=== PATIENT | female | born 1985 | race Hispanic/Latino ===

== ENCOUNTER 2017-09-21 17:52 | Emergency (ER) | payer OTHER ==
[2017-09-21 18:22] VITALS: BMI 25.2
[2017-09-21] MEDS ORDERED: Sodium Chloride 0.9% 1,000 ML IV ONE (19:33)
[2017-09-21 20:14] LABS: BASO # 0.1 K/uL (0.0-0.2); EOS # 0.3 K/uL (0.0-0.7); EOS % 2.6 % (0.0-4.0); HEMOGLOBIN 13.1 g/dL (11.0-16.0); LYMPH # 3.1 K/uL (1.0-4.3); LYMPH % 27.2 % (20.0-40.0); MEAN CELL VOLUME 90.3 fL (81.0-99.0); MEAN CORPUSCULAR HEMOGLOBIN 31.4 pg (27.0-31.0); MEAN CORPUSCULAR HGB CONC 34.8 g/dL (33.0-37.0); MEAN PLATELET VOLUME 8.8 fL (7.2-11.7); MONO # 0.6 K/uL (0.0-0.8); MONO % 5.2 % (0.0-10.0); NEUT # 7.3 K/uL (1.8-7.0); NRBC % 0.1 % (0.0-2.0); RBC 4.17 Mil/uL (3.80-5.20); RED CELL DISTRIBUTION WIDTH 13.3 % (11.5-14.5); WHITE BLOOD COUNT 11.4 K/uL (4.8-10.8)
[2017-09-21 20:17] LABS: HCG,QUALITATIVE URINE NEGATIVE (NEGATIVE)
[2017-09-21 20:20] LABS: SQUAMOUS EPITHIAL 9 /hpf (0-5); URINE BACTERIA FEW (<OCC); URINE BILIRUBIN NEGATIVE (NEGATIVE); URINE BLOOD 1+ (NEGATIVE); URINE CLARITY Hazy (Clear); URINE COLOR Yellow (YELLOW); URINE GLUCOSE (UA) NORMAL (Normal); URINE LEUKOCYTE ESTERASE 3+ Leu/uL (Negative); URINE PROTEIN NEGATIVE (NEGATIVE); URINE UROBILINOGEN NORMAL mg/dL (0.2-1.0)
[2017-09-21 20:27] LABS: ALB/GLOB RATIO 1.2 (1.0-2.1); ALBUMIN 4.4 g/dL (3.5-5.0); ALT/SGPT 10 U/L (9-52); AST/SGOT 18 U/L (14-36); BLOOD UREA NITROGEN 6 mg/dL (7-17); CALCIUM 9.3 mg/dl (8.6-10.4); GFR AFRICAN-AMERICAN > 60; GFR NON-AFRICAN AMERICAN > 60; LIPASE 262 U/L (23-300)
--- NOTE | 2017-09-21 21:02 | C.PDOC ---
Time Seen by Provider: 09/21/17 19:14 Chief Complaint (Nursing): Chest Pain Past Medical History Vital Signs: Last Vital Signs Temp 98.7 F 09/21/17 18:22 Pulse 90 09/21/17 18:22 Resp 18 09/21/17 18:22 BP 141/95 H 09/21/17 18:22 Pulse Ox 99 09/21/17 18:22 - Medical History PMH: Asthma - [facility] Procedures EPISIOTOMY (09/10/13) - Social History Hx Alcohol Use: No Hx Substance Use: No ED Course And Treatment - Laboratory Results Result Diagrams: 09/21/17 20:08 09/21/17 20:08 O2 Sat by Pulse Oximetry: 99 Disposition - Disposition Disposition: HOME/ ROUTINE Disposition Time: 21:01 Condition: STABLE Additional Instructions: FOllow up with your doctor in 1-2 days. Return to ER if symptoms persist or worsen. Prescriptions: Naproxen [Naprosyn] 1 tab PO BID PRN #20 tab PRN Reason: Pain Nitrofurantoin Macrocrystals [Macrobid] 1 cap PO BID #14 cap Instructions: Urinary Tract Infection, Adult (DC) Forms: [employer] (Jordanian)
--- NOTE | 2017-09-21 21:15 | C.PDOC ---
History Of Present Illness 31 y/o female presents to the ED complaining of dizziness, described as lightheadedness, that began earlier today. Additionally, patient complains of bilateral rib pain that has been ongoing for 3 weeks. She notes the rib pain worsens with movement. Denies cough, blunt trauma or fall. Seen by PMD and had x -rays taken yesterday, but patient has not been informed of results yet. Otherwise denies any chest pain, SOB, syncope, nausea, vomiting, or fevers. Patient does report some urinary frequency, but no dysuria or hematuria. Time Seen by Provider: 09/21/17 19:14 Chief Complaint (Nursing): Chest Pain History Per: Patient History/Exam Limitations: no limitations Onset/Duration Of Symptoms: Days Current Symptoms Are (Timing): Still Present Past Medical History Reviewed: Historical Data, Nursing Documentation, Vital Signs Vital Signs: Last Vital Signs Temp 98.4 F 09/21/17 22:21 Pulse 70 09/21/17 22:21 Resp 16 09/21/17 22:21 BP 128/80 09/21/17 22:21 Pulse Ox 99 09/24/17 10:17 - Medical History PMH: Asthma Surgical History: No Surg Hx - [facility] Procedures EPISIOTOMY (09/10/13) Family History: States: No Known Family Hx - Social History Hx Alcohol Use: No Hx Substance Use: No Review Of Systems Except As Marked, All Systems Reviewed And Found Negative. Constitutional: Negative for: Fever, Chills Cardiovascular: Negative for: Chest Pain Respiratory: Negative for: Shortness of Breath Gastrointestinal: Negative for: Nausea, Vomiting Genitourinary: Positive for: Frequency. Negative for: Dysuria Musculoskeletal: Positive for: Other (Bilateral rib pain) Neurological: Positive for: Dizziness (lightheadedness) Physical Exam - Physical Exam Appears: Well, Non-toxic, No Acute Distress Skin: Normal Color, Warm, Dry Head: Atraumatic, Normacephalic Eye(s): bilateral: Normal Inspection, PERRL, EOMI Ear(s): Bilateral: Normal Nose: Normal Oral Mucosa: Moist Neck: Normal ROM, Supple Chest: Symmetrical, Tenderness (reproducible bilateral lateral chest wall tenderness) Cardiovascular: Rhythm Regular Respiratory: Normal Breath Sounds, No Accessory Muscle Use, No Rales, No Rhonchi , No Wheezing Gastrointestinal/Abdominal: Normal Exam, Soft, No Tenderness Back: No CVA Tenderness, No Vertebral Tenderness Extremity: Normal ROM Extremity: Bilateral: Atraumatic, Normal Color And Temperature, Normal ROM Neurological/Psych: Oriented x3, Normal Speech, Normal Cognition, Normal Cranial Nerves (2-12 grossly intact, no focal deficits), Normal Sensation Gait: Steady ED Course And Treatment - Laboratory Results Result Diagrams: 09/21/17 20:08 09/21/17 20:08 ECG: Interpreted By Me, Viewed By Me ECG Rhythm: Sinus Rhythm O2 Sat by Pulse Oximetry: 99 (RA) Pulse Ox Interpretation: Normal - Radiology CXR: Interpreted by Me, Viewed By Me CXR Interpretation: Yes: No Acute Disease Progress Note: Blood work, urine, and chest x-ray ordered. Patient started on IV fluids with Meclizine PO. Labs reviewed, urine is indicative for UTI. Patient treated with Macrobid in the ED. On reevaluation, patient is AAOx3, no focal deficits and reports improvement in symptoms. DEnies dizziness or lightheadedness. Steady gait. No sob or chest pain. Lungs CTA. Patient will be discharged home with prescriptions for Macrobid and Naprosyn. Advised to follow up with PMD in 1-2 days. CAse discussed with Dr Scales, fidel wilson plan and discharge. Reevaluation Time: 21:00 Reassessment Condition: Improved Disposition Counseled Patient/Family Regarding: Studies Performed, Diagnosis, Need For Followup, Rx Given - Disposition Disposition: HOME/ ROUTINE Disposition Time: 21:01 Condition: STABLE Additional Instructions: FOllow up with your doctor in 1-2 days. Return to ER if symptoms persist or worsen. Prescriptions: Naproxen [Naprosyn] 1 tab PO BID PRN #20 tab PRN Reason: Pain Nitrofurantoin Macrocrystals [Macrobid] 1 cap PO BID #14 cap Instructions: Urinary Tract Infection, Adult (DC) Forms: [employer] (Serbian) - POA Present On Arrival: None - Clinical Impression Clinical Impression: Chest wall pain, UTI (urinary tract infection), Dizziness - PA / PREASSEMBLER AND INSPECTOR / Resident Statement MD/DO has reviewed & agrees with the documentation as recorded. - Scribe Statement The provider has reviewed the documentation as recorded by the Scribe (Sandi Turner) All medical record entries made by the Scribe were at my direction and personally dictated by me. I have reviewed the chart and agree that the record accurately reflects my personal performance of the history, physical exam, medical decision making, and the department course for this patient. I have also personally directed, reviewed, and agree with the discharge instructions and disposition.
[2017-09-21 22:22] VITALS: BP 128/80; PULSE 70; RESP 16; TEMP 98.4
--- NOTE | 2017-09-23 02:14 | CARD ---
APPROVED REPORT EKG Measurement Heart [id number] <Conclusion> Normal sinus rhythm with sinus arrhythmia Normal ECG
[2017-09-24 09:05] VITALS: O2SAT 99
== END 2017-09-21 22:22 | disposition home or self-care (01) ==
LOC: C.ER 17:52
DX: N39.0 Urinary tract infection, site not specified (principal); R42 Dizziness and giddiness; R07.89 Other chest pain
CPT/HCPCS: 71046; 80053; 81001; 83690; 84703; 85025; 87086; 93005; 96360; 99285; J7030